=== PATIENT | male | born 1965 | race Caucasian/White ===

== ENCOUNTER 2024-01-15 08:20 | Outpatient (CLI) | payer OTHER, SELFPAY ==
--- OUTSIDE RECORDS SUMMARY | 2024-01-15 08:27 | XMS_ITS | Encounter Summary ---
Author Organization [facility] Address [address] [place] [address] Care Team Providers Care Fuel Assembler Name Role Phone Ainsley Mcdonald MD Primary Care Provider Mariano Yates PA-C Primary Care Provider Mariano Yates PA-C Unavailable + [phone] Encounter Details Date Type Department Care Team (Late st Contact Info) Description 04/25/[address], [address] [place] [address] [facility] Social History Tobacco Use Types Packs/Day Years Used Date Smoking Tobacco: Former Cigarettes Q uit: 07/16/1988 Smokeless Tobacco: Never Alcohol Use Standard Drinks/Week Comments No 0 (1 standard drink = 0.6 oz pur e alcohol) stopped since gout started Sex and Gender Information Value Date Recorded Sex Assigned at Male 10/01/2018 1:37 PM CDT Gender Identity Male 10/01/2018 1:37 PM CDT Sexual Orientation Straight 10/01/2018 1: 37 PM CDT documented as of this encounter Plan of Treatment Not on file documented as of this encounter Visit Diagnoses Not on filedocumented in this encounter Care Teams Fuel Assembler Relationship Specialty Start Date End Date Ainsley Mcdonald MD PCP - General Family Practice 05/12/11 10/06/15 Mariano Yates PA-C PCP - General Physician Underwriting Analyst - Medical 10/07/15 Mariano Yates PA-C [address] [facility] [address] Assigned PCP 10/27/18 10/08/21 documented as of this encounter
--- OUTSIDE RECORDS SUMMARY | 2024-01-15 08:27 | XMS_ITS | Clinical Summary ---
Author Organization [facility] Address [address] [place] [address] Care Team Providers Care Customer Consultant Name Role Phone Mariano Yates PA-C Primary Care Provider Allergies Active Allergy Reactions Criticality Noted Date Comments Alcohol Swelling 04/02/2011 Cinnamon Swelling 04/02/2011 Nsaids Swelling 04/02/2011 Angioedema Medications Medication Sig Dispensed Refills Start Date End Date Status Multiple Vitamin (MULTIVITAMINS PO) Take by mouth daily. Active [place]-3 Fatty Acids (FISH OIL PO) Take 2,400 mg by mouth. Active APPLE CIDER VINEGAR PO Take 20 mLs by mouth 3 times daily. Active Cholecalciferol (VITAMIN D3) 3000 UNIT TABS Take by mouth. Active magnesium 500 MG TABS Patient takes (1) tab daily. 11/13/2012 Active colchicine (MITIGARE) 0.6 MG capsuleIndications:A cute gout involving toe of right foot, unspecified cause Take 1 capsule (0.6 mg) by mouth daily Take TWO capsules day 1, followed by another ONE capsule one hour later. Then continue with one tab daily until flare resolves. 30 capsule 10/02/2018 Active Active Problems Problem Noted Date Diagnosed Date Hx of gout 08/03/2014 High level of uric acid in blood 08/03/2014 CKD (chronic kidney disease) stage 2, GFR 60-89 ml/min 08/03/2014 HTN, goal below 140/90 04/30/2012 Overview: Quality,at CARDIOVASCULAR SCREENING; LDL GOAL LESS THAN 130 04/26/2012 Acute renal failure (H24) 07/21/2011 Overview: This was 1998, had high BP and fluid retention. Gout 07/21/2011 Vitamin D deficiency 07/21/2011 Overview: (Problem list name updated by automated process. Provider to review and confirm.) Tinnitus 04/05/2011 Resolved Problems Problem Noted Date Diagnosed Date Resolved Date Elevated blood pressure read ing without diagnosis of hypertension 07/21/2011 08/03/2014 Elevated blood uric acid level 07/21/2011 04/26/2012 Overview: (Problem list name updated by automated process. Provider to review and confirm.) Hyperlipidemia LDL goal <160 04/05/2011 04/26/2012 Immunizations Name Administration Dates Next Due Influenza (IIV3) PF 06/06/1999 TD,PF 7+ (Tenivac) 03/18/2007,03/07/2000 TDAP Vaccine (Adacel) 10/02/2018 Family History Medical History Relation Comments Hypertension Brother 4 Hypertension Father Hypertension Mother Heart Disease Paternal Grandfather Neurologic Disorder Paternal Grandmother alzhiem ers Relation Status Comments Brother 1 Alive Brother 2 Alive Brother 3 Alive Brother 4 Father Alive Maternal Grandfather Mother Alive Paternal Grandfather Paternal Grandmother Sister Alive Social History Tobacco Use Types Packs/Day Years Used Date Smoking Tobacco: Former Cigarettes Q uit: 07/16/1988 Smokeless Tobacco: Never Alcohol Use Standard Drinks/Week Comments No 0 (1 standard drink = 0.6 oz pur e alcohol) stopped since gout started Adolescent Education Answer Date Record ed Getting School Help Needed Not on file 04/22 Sex and Gender Information Value Date Recorded Sex Assigned at Male 10/01/2018 1:37 PM CDT Gender Identity Male 10/01/2018 1:37 PM CDT Sexual Orientation Straight 10/01/2018 1: 37 PM CDT Last Filed Vital Signs Vital Sign Reading Time Taken Comments Blood Pressure 126/86 10/18/2018 9:17 AM CDT Pulse 80 10/18/2018 9:17 AM CDT Temperature 37.2 ??C (98.9 ??F) 10/02/2018 11:52 AM C DT Respiratory Rate 16 10/02/2018 11:52 AM CDT Oxygen Saturation 100% 05/28/2014 10:00 AM VISUAL DESIGNER Inhaled Oxygen Concentration - - Weight 74.8 kg (165 lb) 10/02/2018 11:52 AM CDT Height 171.5 cm (5' 7.5) 10/02/2018 11:52 AM CD T Body Mass Index 25.46 10/02/2018 11:52 AM CDT Plan of Treatment Not on file Care Teams Customer Consultant Relationship Specialty Start Date End Date Mariano Yates PA-C PCP - General Physician Railway Head Tender - Medical 10/07/15
--- OUTSIDE RECORDS SUMMARY | 2024-01-15 08:27 | XMS_ITS | Referral Summary ---
Author Organization [facility] Address [address] [place] [address] Care Team Providers Care Under Cutting Machine Operator Name Role Phone Mariano Yates PA-C Primary Care Provider Allergies Active Allergy Reactions Criticality Noted Date Comments Alcohol Swelling 04/02/2011 Cinnamon Swelling 04/02/2011 Nsaids Swelling 04/02/2011 Angioedema Medications Medication Sig Dispensed Refills Start Date End Date Status Multiple Vitamin (MULTIVITAMINS PO) Take by mouth daily. Active [place]-3 Fatty Acids (FISH OIL PO) Take 2,400 [...] 7+ (Tenivac) 03/18/2007,03/07/2000 TDAP Vaccine (Adacel) 10/02/2018 Social History Tobacco Use Types Packs/Day Years [...] CDT Oxygen Saturation 100% 05/28/2014 10:00 AM WATER MAIN INSTALLER HELPER Inhaled Oxygen Concentration - - Weight 74.8 kg (165 lb) 10/02/2018 11:52 AM CDT Height 171.5 cm (5' 7.5) 10/02/2018 11:52 AM CD T Body Mass Index 25.46 10/02/2018 11:52 AM CDT Plan of Treatment Not on file Care Teams Under Cutting Machine Operator Relationship Specialty Start Date End Date Mariano Yates PA-C PCP - General Physician Roundhouse Supervisor - Medical 10/07/15
--- OUTSIDE RECORDS SUMMARY | 2024-01-15 08:27 | XMS_ITS | Encounter Summary ---
Author Organization [facility] Address [address] [place] [address]. [place] [address] Care Team Providers Care Establishment Guide Name Role Phone Ainsley Mcdonald MD Primary Care Provider Mariano Yates PA-C Primary Care Provider Mariano Yates PA-C Unavailable + [phone] Reason for Visit * Reason Onset Date Comments Arthritis 08/02/2014 Gout--blood test s Encounter Details Date Type Department Care Team (Late st Contact Info) Description 08/02/2014 [facility] Medical Advice [address], [address] [place] [address] Mariano Yates PA-C [address] [place] [address] Arthritis (Gout--blood tests) Social History Tobacco Use Types Packs/Day Years [...] PM CDT documented as of this encounter Miscellaneous Notes * Telephone Encounter - Sammi Cowan RN - 08/03/2014 9:12 AM CST Spoke with patient. He will come in today for his blood work. Informed patient of information. Sammi Cowan RN L MANAGER * Telephone Encounter - Ainsley Mcdonald MD - 08/03/2014 8:10 AM TRIAL MANAGER Uric acid lab has been futured L MANAGER * Telephone Encounter - Ainsley Mcdonald MD - 08/03/2014 8:04 AM TRIAL MANAGER Please notify patient he should come in for a uric acid blood test. If this is still high, taking allopurinal daily to prevent complications and flairs of gout is recommended. There is no test for veena overgrowth. This is a very dangerous condition that we normal only seewhen someone is immunocompromised. If you are sensitive to yeast, please avoid this type of food and, of course, supplements. The blood typing is not routinely done. This is covered by insurance if and when you may need a blood transfusion. You can also get this checked when you donate blood at the [facility]. Ainsley Mcdonald Family Medicine, L MANAGER documented in this encounter Plan of Treatment Not on file documented as of this encounter Results * Vitamin D Deficiency (08/03/2014 10:52 AM TRIAL MANAGER) Vitamin D Deficiency screening 74 30 - 75 ug/L [facility] Comment: Season, race, dietary intake, and treatment affect the concentration of 76-ikkpicj-Jzkznis D. Values may decrease during winter months and increase during summer months. Values less than 30 ug/L may indicate Vitamin D deficiency. Vitamin D determiniation is routinely performed by an immunoassay specific for 25 hydroxyvitamin D3. ??If an individual is on vitamin D2 (ergocalciferol) supplementation, please specify 25 OH vitamin D2 and D3 level determination by LCMSMS test VITD23. Blood specimen (specimen) 08/03/2014 10:52 AM TRIAL MANAGER 08/03/2014 10:57 AM TRIAL MANAGER Mariano Yates PA-C LAB - BLOOD OR DERABLES [facility] [address] [place] [address] * Uric acid (08/03/2014 10:52 AM TRIAL MANAGER) Uric Acid 5.9 3.5 - 7.2 mg/dL [facility] Comment: Effective 02/11/2014, the reference range for this assay has changed to reflect new instrumentation/methodology. Blood specimen (specimen) 08/03/2014 10:52 AM TRIAL MANAGER 08/03/2014 10:57 AM TRIAL MANAGER Ainsley Mcdonald MD LAB - BLOOD ORD ERABLES [facility] [address] [place] [address] documented in this encounter Visit Diagnoses Diagnosis Hx of gout- Primary Personal history of other endocrine, metabolic, and immunity disorders High level of uric acid in blood Other abnormal blood chemistry CKD (chronic kidney disease) stage 2, GFR 60-89 ml/min Chronic kidney disease, Stage II (mild) documented in this encounter Care Teams Establishment Guide Relationship Specialty Start Date End Date Ainsley Mcdonald MD PCP - General Family Practice 05/12/11 10/06/15 Mariano Yates PA-C PCP - General Physician Mission Manager - Medical 10/07/15 Mariano Yates PA-C [address] [place] [address] Assigned PCP 10/27/18 10/08/21 documented as of this encounter
--- OUTSIDE RECORDS SUMMARY | 2024-01-15 08:27 | XMS_ITS | Encounter Summary ---
Author Organization [facility] Address [address] [place] [address] Care Team Providers Care Platform Material Handling Supervisor Name Role Phone Ainsley Mcdonald MD Primary Care Provider Mariano Yates PA-C Primary Care Provider Mariano Yates PA-C Unavailable + [phone] Encounter Details Date Type Department Care Team (Late st Contact Info) Description 07/03/2014 [facility] Medical Advice [address], [address] [place] [address] Gabriella Lamar Social History Tobacco Use Types Packs/Day Years [...] on filedocumented in this encounter Care Teams Platform Material Handling Supervisor Relationship Specialty Start Date End Date Ainsley Mcdonald MD PCP - General Family Practice 05/12/11 10/06/15 Mariano Yates PA-C PCP - General Physician Ice Cream Dispenser - Medical 10/07/15 Mariano Yates PA-C [address] [facility] [address] Assigned PCP 10/27/18 10/08/21 documented as of this encounter
--- OUTSIDE RECORDS SUMMARY | 2024-01-15 08:27 | XMS_ITS | Encounter Summary ---
Author Organization [facility] Address [address] [place] [address] Care Team Providers Care Svp Digital Sales Name Role Phone Mariano Yates PA-C Primary Care Provider Mariano Yates PA-C Unavailable + [phone] Reason for Visit * Reason Onset Date Comments Forms 01/04/2016 Life Insurance Encounter Details Date Type Department Care Team (Late st Contact Info) Description 01/04/2016 [facility] Medical Advice [address], [address] [place] [address] Mariano Yates PA-C [address] [place] [address] Forms (Life Insurance) Social History Tobacco Use Types Packs/Day Years [...] on filedocumented in this encounter Care Teams Svp Digital Sales Relationship Specialty Start Date End Date Mariano Yates PA-C PCP - General Physician Carpenter Assembler - Medical 10/07/15 Mariano Yates PA-C [address] [id number] Assigned PCP 10/27/18 10/08/21 documented as of this encounter
--- OUTSIDE RECORDS SUMMARY | 2024-01-15 08:27 | XMS_ITS | Encounter Summary ---
Author Organization [facility] Address [address] [place] [address]. [place] [address] Care Team Providers Care Assembler Hydraulic Backhoe Name Role Phone Mariano Yates PA-C Primary Care Provider Mariano Yates PA-C Unavailable + [phone] Reason for Visit * Reason Onset Date Comments Forms 10/07/2015 Encounter Details Date Type Department Care Team (Late st Contact Info) Description 10/07/2015 [facility] Medical Advice [address], [address] [place] [address] Mariano Yates PA-C [address] [place] [address] Forms Social History Tobacco Use Types Packs/Day Years [...] encounter Miscellaneous Notes * Telephone Encounter - Mariano Yates PA-C - 10/13/2015 1:47 PM CDT It sounds like he wants me to look at the forms, is that correct. If so, yes I can take a look. Mariano documented in this encounter Plan of Treatment Not on file documented as of this encounter Visit Diagnoses Not on filedocumented in this encounter Care Teams Assembler Hydraulic Backhoe Relationship Specialty Start Date End Date Mariano Yates PA-C PCP - General Physician Electrical Maintenance Engineer - Medical 10/07/15 Mariano Yates PA-C [address] [place] [address] Assigned PCP 10/27/18 10/08/21 documented as of this encounter
--- OUTSIDE RECORDS SUMMARY | 2024-01-15 08:27 | XMS_ITS | Encounter Summary ---
Author Organization [facility] Address [address] [place] [address] Care Team Providers Care Septic Tank Setter Name Role Phone Ainsley Mcdonald MD Primary Care Provider Mariano Yates PA-C Primary Care Provider Mariano Yates PA-C Unavailable + [phone] Encounter Details Date Type Department Care Team (Late st Contact Info) Description 04/13/2015 [facility] Medical Advice [address], [address] [place] [address] Gabriella Lamar Social History Tobacco [...] on filedocumented in this encounter Care Teams Septic Tank Setter Relationship Specialty Start Date End Date Ainsley Mcdonald MD PCP - General Family Practice 05/12/11 10/06/15 Mariano Yates PA-C PCP - General Physician Production Metal Sprayer - Medical 10/07/15 Mariano Yates PA-C [address] [facility] [address] Assigned PCP 10/27/18 10/08/21 documented as of this encounter
--- OUTSIDE RECORDS SUMMARY | 2024-01-15 08:27 | XMS_ITS | Encounter Summary ---
Author Organization [facility] Address [address] [place] [address] Care Team Providers Care Belly Roller Name Role Phone Ainsley Mcdonald MD Primary Care Provider Mariano Yates PA-C Primary Care Provider Mariano Yates PA-C Unavailable + [phone] Reason for Visit * Reason Onset Date Comments Lab Result Notice 07/25/2011 Vitamin D anastasia beckford Encounter Details Date Type Department Care Team (Late st Contact Info) Description 07/25/2011 [facility] Medical Advice [address], [address] [place] [address] [place] [address] [place] [address] Lab Result Notice (Vitamin D level) Social History Tobacco Use Types Packs/Day Years [...] on filedocumented in this encounter Care Teams Belly Roller Relationship Specialty Start Date End Date Ainsley Mcdonald MD PCP - General Family Practice 05/12/11 10/06/15 Mariano Yates PA-C PCP - General Physician Senior Product Development Manager - Medical 10/07/15 Mariano Yates PA-C [address] [facility] [address] Assigned PCP 10/27/18 10/08/21 documented as of this encounter
== END 2024-01-15 08:21 | disposition home or self-care (01) ==
PROVIDERS: PCP Family Medicine; Visit Provider Family Medicine
DX: I10 Essential (primary) hypertension (principal); M10.9 Gout, unspecified; Z86.39 Personal history of other endocrine, nutritional and metabolic disease; Z13.220 Encounter for screening for lipoid disorders
CPT/HCPCS: 80053; 80061; 82248; 82306; 84550

== ENCOUNTER 2024-01-28 07:45 | Outpatient (CLI) | payer OTHER, SELFPAY ==
--- OUTSIDE RECORDS SUMMARY | 2024-01-28 07:47 | XMS_ITS | Encounter Summary ---
Author Organization [facility] Address [address] [place] [address] Care Team Providers Care Forestry Pilot Name Role Phone Mariano Yates PA-C Primary Care Provider Mariano Yates PA-C Unavailable + [phone] Reason for Visit * Reason Onset Date Comments Forms 01/04/2016 Life Insurance Encounter Details Date Type Department Care Team (Late st Contact Info) Description 01/04/2016 [facility] Medical Advice [address], [address] [place] [address] Mariano Yates PA-C [address] [place] [address] Forms (Life Insurance) Social History [...] on filedocumented in this encounter Care Teams Forestry Pilot Relationship Specialty Start Date End Date Mariano Yates PA-C PCP - General Physician Incident Response Manager - Medical 10/07/15 Mariano Yates PA-C [address] [id number] Assigned PCP 10/27/18 10/08/21 documented as of this encounter
--- OUTSIDE RECORDS SUMMARY | 2024-01-28 07:47 | XMS_ITS | Encounter Summary ---
Author Organization [facility] Address [address] [place] [address]. [place] [address] Care Team Providers Care Senior Net Developer Name Role Phone Ainsley Mcdonald MD Primary Care Provider Mariano Yates PA-C Primary Care Provider Mariano Yates PA-C Unavailable + [phone] Reason for Visit * Reason Onset Date Comments Arthritis 08/02/2014 Gout--blood test s Encounter Details Date Type Department Care Team (Late st Contact Info) Description 08/02/2014 [facility] Medical Advice [address] [place] [address], [address] [place] [address] Mariano Yates PA-C [address] [place] [address] Arthritis (Gout--blood tests) Social History [...] Informed patient of information. Sammi Cowan RN SPRING STAKER * Telephone Encounter - Ainsley Mcdonald MD - 08/03/2014 8:10 AM HAIRSPRING STAKER Uric acid lab has been futured SPRING STAKER * Telephone Encounter - Ainsley Mcdonald MD - 08/03/2014 8:04 AM HAIRSPRING STAKER Please notify patient he should come in [...] checked when you donate blood at the [place]. Ainsley Mcdonald Family Medicine, SPRING STAKER documented in this encounter Plan of Treatment Not on file documented as of this encounter Results * Vitamin D Deficiency (08/03/2014 10:52 AM HAIRSPRING STAKER) Vitamin D Deficiency screening 74 30 - 75 ug/L [facility] Comment: Season, race, dietary intake, and treatment affect the concentration of 70-lteewso-Gdrifkj D. Values may decrease during winter months [...] VITD23. Blood specimen (specimen) 08/03/2014 10:52 AM HAIRSPRING STAKER 08/03/2014 10:57 AM HAIRSPRING STAKER Mariano Yates PA-C LAB - BLOOD OR DERABLES [facility] [address] [place] [address] * Uric acid (08/03/2014 10:52 AM HAIRSPRING STAKER) Uric Acid 5.9 3.5 - 7.2 mg/dL [facility] Comment: Effective 02/11/2014, the reference range for this assay has changed to reflect new instrumentation/methodology. Blood specimen (specimen) 08/03/2014 10:52 AM HAIRSPRING STAKER 08/03/2014 10:57 AM HAIRSPRING STAKER Ainsley Mcdonald MD LAB - BLOOD ORD ERABLES [facility] [address] [place] [address] documented in this encounter Visit Diagnoses Diagnosis Hx of gout- Primary Personal history of other endocrine, metabolic, and immunity disorders High level of uric acid in blood Other abnormal blood chemistry CKD (chronic kidney disease) stage 2, GFR 60-89 ml/min Chronic kidney disease, Stage II (mild) documented in this encounter Care Teams Senior Net Developer Relationship Specialty Start Date End Date Ainsley Mcdonald MD PCP - General Family Practice 05/12/11 10/06/15 Mariano Yates PA-C PCP - General Physician Traffic Control Technician - Medical 10/07/15 Mariano Yates PA-C [address] [place] [address] Assigned PCP 10/27/18 10/08/21 documented as of this encounter
--- OUTSIDE RECORDS SUMMARY | 2024-01-28 07:47 | XMS_ITS | Clinical Summary ---
Author Organization [facility] Address [address] [place] [address] Care Team Providers Care Frame Cleaner Name Role Phone Mariano Yates PA-C Primary Care Provider Allergies Active Allergy Reactions Criticality Noted Date Comments Alcohol Swelling 04/02/2011 Cinnamon Swelling 04/02/2011 Nsaids Swelling 04/02/2011 Angioedema Medications Medication Sig Dispensed Refills Start Date End Date Status Multiple Vitamin (MULTIVITAMINS PO) Take by mouth daily. Active [place]-3 Fatty Acids (FISH OIL PO) Take 2,400 [...] CDT Oxygen Saturation 100% 05/28/2014 10:00 AM MEDICAL LEGAL INVESTIGATOR Inhaled Oxygen Concentration - - Weight 74.8 kg (165 lb) 10/02/2018 11:52 AM CDT Height 171.5 cm (5' 7.5) 10/02/2018 11:52 AM CD T Body Mass Index 25.46 10/02/2018 11:52 AM CDT Plan of Treatment Not on file Care Teams Frame Cleaner Relationship Specialty Start Date End Date Mariano Yates PA-C PCP - General Physician Utilities And Maintenance Supervisor - Medical 10/07/15
--- OUTSIDE RECORDS SUMMARY | 2024-01-28 07:47 | XMS_ITS | Referral Summary ---
Author Organization [facility] Address [address] [place] [address] Care Team Providers Care Scoring Machine Operator Name Role Phone Mariano Yates PA-C Primary Care Provider Allergies Active Allergy Reactions Criticality Noted Date Comments Alcohol Swelling 04/02/2011 Cinnamon Swelling 04/02/2011 Nsaids Swelling 04/02/2011 Angioedema Medications Medication Sig Dispensed Refills Start Date End Date Status Multiple Vitamin (MULTIVITAMINS PO) Take by mouth daily. Active [place]-3 Fatty Acids (FISH OIL PO) Take 2,400 [...] CDT Oxygen Saturation 100% 05/28/2014 10:00 AM BEEF CATTLE GRAZIER Inhaled Oxygen Concentration - - Weight 74.8 kg (165 lb) 10/02/2018 11:52 AM CDT Height 171.5 cm (5' 7.5) 10/02/2018 11:52 AM CD T Body Mass Index 25.46 10/02/2018 11:52 AM CDT Plan of Treatment Not on file Care Teams Scoring Machine Operator Relationship Specialty Start Date End Date Mariano Yates PA-C PCP - General Physician Chief Science Officer - Medical 10/07/15
--- OUTSIDE RECORDS SUMMARY | 2024-01-28 07:47 | XMS_ITS | Encounter Summary ---
Author Organization [facility] Address [address] [place] [address] Care Team Providers Care Cable Engineer Outside Plant Name Role Phone Ainsley Mcdonald MD Primary Care Provider Mariano Yates PA-C Primary Care Provider Mariano Yates PA-C Unavailable + [phone] Encounter Details Date Type Department Care Team (Late st Contact Info) Description 04/25/[address], [address] [place] [address] [facility] Social History Tobacco Use Types Packs/Day [...] on filedocumented in this encounter Care Teams Cable Engineer Outside Plant Relationship Specialty Start Date End Date Ainsley Mcdonald MD PCP - General Family Practice 05/12/11 10/06/15 Mariano Yates PA-C PCP - General Physician Director Distribution - Medical 10/07/15 Mariano Yates PA-C [address] [facility] [address] Assigned PCP 10/27/18 10/08/21 documented as of this encounter
--- OUTSIDE RECORDS SUMMARY | 2024-01-28 07:47 | XMS_ITS | Encounter Summary ---
Author Organization [facility] Address [address] [place] [address] Care Team Providers Care Willow Machine Operator Name Role Phone Ainsley Mcdonald MD Primary Care Provider Mariano Yates PA-C Primary Care Provider Mariano Yates PA-C Unavailable + [phone] Encounter Details Date Type Department Care Team (Late st Contact Info) Description 07/03/2014 [facility] Medical Advice [address], [address] [place] [address] Gabriella Lamar Social History Tobacco [...] on filedocumented in this encounter Care Teams Willow Machine Operator Relationship Specialty Start Date End Date Ainsley Mcdonald MD PCP - General Family Practice 05/12/11 10/06/15 Mariano Yates PA-C PCP - General Physician Commercial Construction Superintendent - Medical 10/07/15 Mariano Yates PA-C [address] [facility] [address] Assigned PCP 10/27/18 10/08/21 documented as of this encounter
--- OUTSIDE RECORDS SUMMARY | 2024-01-28 07:47 | XMS_ITS | Encounter Summary ---
Author Organization [place] Address [address] [place] [address] Care Team Providers Care Functional Manager Name Role Phone Ainsley Mcdonald MD Primary Care Provider Mariano Yates PA-C Primary Care Provider Mariano Yates PA-C Unavailable + [phone] Reason for Visit * Reason Onset Date Comments Lab Result Notice 07/25/2011 Vitamin D anastasia beckford Encounter Details Date Type Department Care Team (Late st Contact Info) Description 07/25/2011 [facility] Medical Advice [address], [address] [place] [address] [place] [address] [place] [address] Lab Result Notice (Vitamin D [...] on filedocumented in this encounter Care Teams Functional Manager Relationship Specialty Start Date End Date Ainsley Mcdonald MD PCP - General Family Practice 05/12/11 10/06/15 Mariano Yates PA-C PCP - General Physician Home Appliances Mechanic - Medical 10/07/15 Mariano Yates PA-C [address] [facility] [address] Assigned PCP 10/27/18 10/08/21 documented as of this encounter
--- OUTSIDE RECORDS SUMMARY | 2024-01-28 07:47 | XMS_ITS | Encounter Summary ---
Author Organization [place] Address [address] [place] [address] Care Team Providers Care Sausage Canner Name Role Phone Ainsley Mcdonald MD Primary Care Provider Mariano Yates PA-C Primary Care Provider Mariano Yates PA-C Unavailable + [phone] Encounter Details Date Type Department Care Team (Late st Contact Info) Description 04/13/2015 [facility] [place] [address], [address] [place] [address] Gabriella Lamar Social History Tobacco [...] on filedocumented in this encounter Care Teams Sausage Canner Relationship Specialty Start Date End Date Ainsley Mcdonald MD PCP - General Family Practice 05/12/11 10/06/15 Mariano Yates PA-C PCP - General Physician Data Analysis Assistant - Medical 10/07/15 Mariano Yates PA-C [address] [facility] [place] [address] Assigned PCP 10/27/18 10/08/21 documented as of this encounter
--- OUTSIDE RECORDS SUMMARY | 2024-01-28 07:47 | XMS_ITS | Encounter Summary ---
Author Organization [place] Address [address] [place] [address]. [place] [address] Care Team Providers Care Hand Mexican Food Maker Name Role Phone Mariano Yates PA-C Primary Care Provider Mariano Yates PA-C Unavailable + [phone] Reason for Visit * Reason Onset Date Comments Forms 10/07/2015 Encounter Details Date Type Department Care Team (Late st Contact Info) Description 10/07/2015 [facility] [place] [address], [address] [place] [address] Mariano Yates PA-C [address] [place] [address] Forms Social History Tobacco Use [...] on filedocumented in this encounter Care Teams Hand Mexican Food Maker Relationship Specialty Start Date End Date Mariano Yates PA-C PCP - General Physician Agricultural Loan Officer - Medical 10/07/15 Mariano Yates PA-C [address] [place] [address] Assigned PCP 10/27/18 10/08/21 documented as of this encounter
== END 2024-01-28 07:46 | disposition home or self-care (01) ==
LOC: OP CLINIC 07:45
PROVIDERS: PCP Family Medicine; Visit Provider Internal Medicine
DX: Z12.11 Encounter for screening for malignant neoplasm of colon (principal)
CPT/HCPCS: 45378

== ENCOUNTER 2024-03-07 08:49 | Outpatient (CLI) | payer OTHER, SELFPAY ==
--- OUTSIDE RECORDS SUMMARY | 2024-03-11 21:44 | XMS_ITS | Encounter Summary ---
Author Organization [place] Address [address] [place] [address]. [place] [address] Care Team Providers Care Brick Layer Name Role Phone Ainsley Mcdonald MD Primary Care Provider Mariano Yates PA-C Primary Care Provider Mariano Yates PA-C Unavailable + [phone] Reason for Visit * Reason Onset Date Comments Arthritis 08/02/2014 Gout--blood test s Encounter Details Date Type Department Care Team (Late st Contact Info) Description 08/02/2014 [facility] Medical Advice [address], [address] [place] [address] Mariano Yates PA-C [address] [place] [address] Arthritis (Gout--blood tests) Social History [...] Informed patient of information. Sammi Cowan RN EDITOR * Telephone Encounter - Ainsley Mcdonald MD - 08/03/2014 8:10 AM WEB EDITOR Uric acid lab has been futured EDITOR * Telephone Encounter - Ainsley Mcdonald MD - 08/03/2014 8:04 AM WEB EDITOR Please notify patient he should come in [...] checked when you donate blood at the [facility]. Ainsley Mcd[facility], EDITOR documented in this encounter Plan of Treatment Not on file documented as of this encounter Results * Vitamin D Deficiency (08/03/2014 10:52 AM WEB EDITOR) Vitamin D Deficiency screening 74 30 - 75 ug/L [facility] Comment: Season, race, dietary intake, and treatment affect the concentration of 05-dccuebm-Qanoabz D. Values may decrease during winter months [...] VITD23. Blood specimen (specimen) 08/03/2014 10:52 AM WEB EDITOR 08/03/2014 10:57 AM WEB EDITOR Mariano Yates PA-C LAB - BLOOD OR DERABLES [facility] [address] [place] [address] * Uric acid (08/03/2014 10:52 AM WEB EDITOR) Uric Acid 5.9 3.5 - 7.2 mg/dL [facility] Comment: Effective 02/11/2014, the reference range for this assay has changed to reflect new instrumentation/methodology. Blood specimen (specimen) 08/03/2014 10:52 AM WEB EDITOR 08/03/2014 10:57 AM WEB EDITOR Ainsley Mcdonald MD LAB - BLOOD ORD ERABLES [facility] [address] [place] [address] documented in this encounter Visit Diagnoses Diagnosis Hx of gout- Primary Personal history of other endocrine, metabolic, and immunity disorders High level of uric acid in blood Other abnormal blood chemistry CKD (chronic kidney disease) stage 2, GFR 60-89 ml/min Chronic kidney disease, Stage II (mild) documented in this encounter Care Teams Brick Layer Relationship Specialty Start Date End Date Ainsley Mcdonald MD PCP - General Family Practice 05/12/11 10/06/15 Mariano Yates PA-C PCP - General Physician Installer - Medical 10/07/15 Mariano Yates PA-C [address] [place] [address] Assigned PCP 10/27/18 10/08/21 documented as of this encounter
--- OUTSIDE RECORDS SUMMARY | 2024-03-11 21:44 | XMS_ITS | Encounter Summary ---
Author Organization [place] Address [address] [place] [address] Care Team Providers Care Sinter Feeder Name Role Phone Ainsley Mcdonald MD Primary Care Provider Mariano Yates PA-C Primary Care Provider Mariano Yates PA-C Unavailable + [phone] Encounter Details Date Type Department Care Team (Late st Contact Info) Description 04/13/2015 [facility] [place] Medical Advice [address], [address] [place] [address] Gabriella Lamar Social History Tobacco [...] on filedocumented in this encounter Care Teams Sinter Feeder Relationship Specialty Start Date End Date Ainsley Mcdonald MD PCP - General Family Practice 05/12/11 10/06/15 Mariano Yates PA-C PCP - General Physician Black And White Printer Operator - Medical 10/07/15 Mariano Yates PA-C [address] [facility] [place] [address] Assigned PCP 10/27/18 10/08/21 documented as of this encounter
--- OUTSIDE RECORDS SUMMARY | 2024-03-11 21:44 | XMS_ITS | Encounter Summary ---
Author Organization [place] Address [address] [place] [address] Care Team Providers Care Finance Admin Name Role Phone Ainsley Mcdonald MD Primary Care Provider Mariano Yates PA-C Primary Care Provider Mariano Yates PA-C Unavailable + [phone] Reason for Visit * Reason Onset Date Comments Lab Result Notice 07/25/2011 Vitamin D anastasia beckford Encounter Details Date Type Department Care Team (Late st Contact Info) Description 07/25/2011 [facility] Medical Advice [address], [address] [place] [address] [place] [address] [place] [address] Lab Result Notice (Vitamin D [...] on filedocumented in this encounter Care Teams Finance Admin Relationship Specialty Start Date End Date Ainsley Mcdonald MD PCP - General Family Practice 05/12/11 10/06/15 Mariano Yates PA-C PCP - General Physician Consumer Safety Officer - Medical 10/07/15 Mariano Yates PA-C [address] [facility] [address] Assigned PCP 10/27/18 10/08/21 documented as of this encounter
--- OUTSIDE RECORDS SUMMARY | 2024-03-11 21:44 | XMS_ITS | Referral Summary ---
Author Organization [place] Address [address] [place] [address] Care Team Providers Care Starch Cooker Name Role Phone Mariano Yates PA-C Primary Care Provider Allergies Active Allergy Reactions Criticality Noted Date Comments Alcohol Swelling 04/02/2011 Cinnamon Swelling 04/02/2011 Nsaids Swelling 04/02/2011 Angioedema Medications Medication Sig Dispensed Refills Start Date End Date Status Multiple Vitamin (MULTIVITAMINS PO) Take by mouth daily. Active [place]-3 Fatty Acids (FISH OIL PO) Take 2,400 [...] CDT Oxygen Saturation 100% 05/28/2014 10:00 AM PSYCHOLOGY TECHNICIAN Inhaled Oxygen Concentration - - Weight 74.8 kg (165 lb) 10/02/2018 11:52 AM CDT Height 171.5 cm (5' 7.5) 10/02/2018 11:52 AM CD T Body Mass Index 25.46 10/02/2018 11:52 AM CDT Plan of Treatment Not on file Care Teams Starch Cooker Relationship Specialty Start Date End Date Mariano Yates PA-C PCP - General Physician Casing Trimmer - Medical 10/07/15
--- OUTSIDE RECORDS SUMMARY | 2024-03-11 21:44 | XMS_ITS | Clinical Summary ---
Author Organization [place] Address [address] [place] [address] Care Team Providers Care Irrigation Worker Name Role Phone Mariano Yates PA-C Primary Care Provider Allergies Active Allergy Reactions Criticality Noted Date Comments Alcohol Swelling 04/02/2011 Cinnamon Swelling 04/02/2011 Nsaids Swelling 04/02/2011 Angioedema Medications Medication Sig Dispensed Refills Start Date End Date Status Multiple Vitamin (MULTIVITAMINS PO) Take by mouth daily. Active [place]-3 Fatty Acids (FISH OIL PO) Take 2,400 [...] CDT Oxygen Saturation 100% 05/28/2014 10:00 AM WEED THINNER Inhaled Oxygen Concentration - - Weight 74.8 kg (165 lb) 10/02/2018 11:52 AM CDT Height 171.5 cm (5' 7.5) 10/02/2018 11:52 AM CD T Body Mass Index 25.46 10/02/2018 11:52 AM CDT Plan of Treatment Not on file Care Teams Irrigation Worker Relationship Specialty Start Date End Date Mariano Yates PA-C PCP - General Physician Sieve Grader Tender - Medical 10/07/15
--- OUTSIDE RECORDS SUMMARY | 2024-03-11 21:44 | XMS_ITS | Encounter Summary ---
Author Organization [place] Address [address] [place] [address] Care Team Providers Care Roller Varnisher Name Role Phone Ainsley Mcdonald MD Primary Care Provider Mariano Yates PA-C Primary Care Provider Mariano Yates PA-C Unavailable + [phone] Encounter Details Date Type Department Care Team (Late st Contact Info) Description 07/03/2014 [facility] [place]ice [address], [address] [place] [address] Gabriella Lamar Social History Tobacco [...] on filedocumented in this encounter Care Teams Roller Varnisher Relationship Specialty Start Date End Date Ainsley Mcdonald MD PCP - General Family Practice 05/12/11 10/06/15 Mariano Yates PA-C PCP - General Physician Electrical Systems Designer - Medical 10/07/15 Mariano Yates PA-C [address] [facility] [place] [address] Assigned PCP 10/27/18 10/08/21 documented as of this encounter
--- OUTSIDE RECORDS SUMMARY | 2024-03-11 21:44 | XMS_ITS | Encounter Summary ---
Author Organization [place] Address [address] [place] [address]. [place] [address] Care Team Providers Care Education Professional Name Role Phone Mariano Yates PA-C Primary Care Provider Mariano Yates PA-C Unavailable + [phone] Reason for Visit * Reason Onset Date Comments Forms 10/07/2015 Encounter Details Date Type Department Care Team (Late st Contact Info) Description 10/07/2015 [facility] [place] [address], [address] [place] [address] Mariano Yates PA-C [address] [place] [address] Forms Social History Tobacco Use [...] on filedocumented in this encounter Care Teams Education Professional Relationship Specialty Start Date End Date Mariano Yates PA-C PCP - General Physician Deputy Clerk Of Court - Medical 10/07/15 Mariano Yates PA-C [address] [place] [address] Assigned PCP 10/27/18 10/08/21 documented as of this encounter
--- OUTSIDE RECORDS SUMMARY | 2024-03-11 21:44 | XMS_ITS | Encounter Summary ---
Author Organization [place] Address [address] [place] [address] Care Team Providers Care Card Services Specialist Name Role Phone Ainsley Mcdonald MD Primary Care Provider Mariano Yates PA-C Primary Care Provider Mariano Yates PA-C Unavailable + [phone] Encounter Details Date Type Department Care Team (Late st Contact Info) Description 04/25/[address], [address] [place] [address] [facility] Social History Tobacco Use Types Packs/Day Years [...] on filedocumented in this encounter Care Teams Card Services Specialist Relationship Specialty Start Date End Date Ainsley Mcdonald MD PCP - General Family Practice 05/12/11 10/06/15 Mariano Yates PA-C PCP - General Physician Geological Engineering Teacher - Medical 10/07/15 Mariano Yates PA-C [address] [facility] [place] [address] Assigned PCP 10/27/18 10/08/21 documented as of this encounter
--- OUTSIDE RECORDS SUMMARY | 2024-03-11 21:44 | XMS_ITS | Encounter Summary ---
Author Organization [place] Address [address] [place] [address] Care Team Providers Care Battery Assembler Plastic Name Role Phone Mariano Yates PA-C Primary Care Provider Mariano Yates PA-C Unavailable + [phone] Reason for Visit * Reason Onset Date Comments Forms 01/04/2016 Life Insurance Encounter Details Date Type Department Care Team (Late st Contact Info) Description 01/04/2016 [facility] Medical Advice [address], [address] [place] [address] Mariano Yates PA-C [address] [place] [address] Forms (Life Insurance) Social History [...] on filedocumented in this encounter Care Teams Battery Assembler Plastic Relationship Specialty Start Date End Date Mariano Yates PA-C PCP - General Physician Foamite Mixer - Medical 10/07/15 Mariano Yates PA-C [address] [address] [address] Assigned PCP 10/27/18 10/08/21 documented as of this encounter
== END 2024-03-07 08:50 | disposition home or self-care (01) ==
LOC: NFLDREF 03-11 21:43
PROVIDERS: PCP Family Medicine; Referring Provider Family Medicine; Visit Provider Family Medicine
DX: I10 Essential (primary) hypertension (principal)
CPT/HCPCS: 80048

== ENCOUNTER 2024-12-18 10:09 | Outpatient (CLI) | payer OTHER, SELFPAY | END 2024-12-18 10:10 | disposition home or self-care (01) | PROVIDERS: PCP Family Medicine; Visit Provider Family Medicine | DX: R31.0 Gross hematuria (principal); R39.198 Other difficulties with micturition; N18.2 Chronic kidney disease, stage 2 (mild); Z12.5 Encounter for screening for malignant neoplasm of prostate | CPT/HCPCS: 80048; 87086; 87491; 87591; G0103 ==

== ENCOUNTER 2024-12-19 14:02 | Outpatient (CLI) | payer OTHER, SELFPAY ==
--- NOTE | 2024-12-19 15:00 | CRLHL7_ITS ---
For Patients: As a result of the Century Cures Act, medical imaging exams and procedure reports are released immediately into your electronic medical record. You may view this report before your referring provider. If you have questions, please contact your health care provider. INDICATION: GROSS HEMATURIA, PROBLEMS URINATING. BLOOD CLOTS TECHNIQUE: CT abdomen and pelvis urogram without and with 100CC ISOVUE 370 contrast. Contrast images were obtained in the nephrographic and delayed phases. COMPARISON: None. FINDINGS: KIDNEYS: The unenhanced images demonstrate no kidney or ureteral stones. The kidneys are normal in caliber and demonstrate normal uptake and excretion of IV contrast. No masses. The renal collecting systems and ureters are symmetrical, normal in caliber, and without evidence of mass or filling defect. URINARY BLADDER: No bladder calculi. The bladder wall is trabeculated posteriorly and measures up to 5 millimeters. Prostate is enlarged and heterogeneous with lobular mass effect upon the inferior bladder. The prostate measures 6.7 x 4.7 x 5.8 cm. OTHER: Mild scarring within both lung bases. Small hiatal hernia. Fatty liver. Gallbladder normal. Normal pancreas and spleen. Adrenal glands are normal. No adenopathy. Appendix normal. No bowel obstruction or free air. No free fluid or abscess. No fracture. Degenerative disc disease lumbar spine. IMPRESSION: 1. Distended bladder with posterior bladder wall trabeculation. Bladder wall measures up to 5 millimeters. 2. Enlarged prostate with lobular mass effect upon the inferior bladder. 3. No renal, ureteral or bladder stone. No hydronephrosis. Please note that all CT scans at this facility use dose modulation, iterative reconstruction, and/or weight-based dosing when appropriate to reduce radiation dose to as low as reasonably achievable. Dictated by Loco Vaughn MD @ 12/22/2024 9:29:34 AM (Electronically Signed)
== END 2024-12-19 14:03 | disposition home or self-care (01) ==
LOC: CT 14:03
PROVIDERS: PCP Family Medicine; Visit Provider Family Medicine
DX: R31.0 Gross hematuria (principal); N40.0 Benign prostatic hyperplasia without lower urinary tract symptoms; R19.09 Other intra-abdominal and pelvic swelling, mass and lump; R39.198 Other difficulties with micturition
CPT/HCPCS: 74178; 87491; 87591; Q9967

== ENCOUNTER 2025-01-15 07:05 | Outpatient (CLI) | payer OTHER, SELFPAY ==
--- NOTE | 2025-01-15 07:15 | MR_ITS ---
[address] [place] [address] [address] Phone:?[phone] Fax:?[phone] Referring Physician Information: Merlin Sterling [address] [address] [facility] [address] Phone:?[phone] Fax:?[phone] Patient:Javier Zendejas D.O.B:?1965 Sex:?Male Phone:?[phone] [facility] MRN:?[id number] Exam Date:?01/15/2025 EXAM: MR PROSTATE WITHOUT AND WITH CONTRAST CLINICAL INFORMATION: Elevated PSA. COMPARISON: None. TECHNICAL INFORMATION: Examination was performed on a 1.5T magnet. High- resolution T1 axial, T2 axial, T2 FSE sagittal and T2 FSE coronal images were obtained through the prostate gland and seminal vesicles. Diffusion images were obtained in the axial plane. 15 mL of Dotarem were injected with dynamic enhanced images of the prostate gland in the axial plane. T1 fat saturation sagittal and coronal images were obtained postinjection. Images were analyzed with 3-D postprocessing online under concurrent physician supervision using a separate Popdust workstation. INTERPRETATION: The prostate gland measures 5.6 x 5.0 x 6.0 cm (TV x AP x SI) for an estimated volume of 76 cc. Transitional and central zones: There is moderate glandular and stromal hyperplasia with well encapsulated BPH nodules (PI-RADS 2). No focal CZ/TZ lesions concerning for clinically significant adenocarcinoma. Peripheral zones: No focal PZ lesions concerning for clinically significant adenocarcinoma (PI-RADS 1). Pelvis: No jonathon transcapsular disease. Neurovascular bundles and seminal vesicles appear intact. No pelvic lymphadenopathy or evident bone marrow disease. CONCLUSION: Moderate prostatomegaly with stigmata of BPH. No suspicious (PI-RADS 3, 4, or 5) lesions identified. No jonathon transcapsular, sridhar, or skeletal disease in the pelvis. PI-RADS Assessment Categories: Score 1 = very low; clinically significant disease highly unlikely Score 2 = low; clinically significant disease is unlikely Score 3 = intermediate; clinically significant disease is equivocal Score 4 = high; clinically significant disease is likely Score 5 = very high; clinically significant disease is highly likely Electronically signed on 01/15/2025 12:58:00 PM by Merlin Oneil M.D.
== END 2025-01-15 07:06 | disposition home or self-care (01) ==
LOC: MRI 07:07
PROVIDERS: PCP Family Medicine; Visit Provider Physician Assistant
DX: R97.20 Elevated prostate specific antigen [PSA] (principal); N40.0 Benign prostatic hyperplasia without lower urinary tract symptoms
CPT/HCPCS: 72197; A9575

== ENCOUNTER 2025-05-01 07:35 | Outpatient (CLI) | payer OTHER, SELFPAY | END 2025-05-01 07:36 | disposition home or self-care (01) | LOC: NFLDREF 05-07 09:13 | PROVIDERS: PCP Family Medicine; Referring Provider Family Medicine; Visit Provider Family Medicine | DX: I10 Essential (primary) hypertension (principal); M10.9 Gout, unspecified; Z13.6 Encounter for screening for cardiovascular disorders; Z86.39 Personal history of other endocrine, nutritional and metabolic disease | CPT/HCPCS: 80053; 80061; 82306; 84550; G0103 ==

== ENCOUNTER 2025-05-21 08:35 | Outpatient (CLI) | payer OTHER, SELFPAY | END 2025-05-21 08:36 | disposition home or self-care (01) | LOC: NFLDREF 05-25 03:41 | PROVIDERS: PCP Family Medicine; Referring Provider Family Medicine; Visit Provider Family Medicine | DX: I10 Essential (primary) hypertension (principal) | CPT/HCPCS: 80048 ==